=== PATIENT | female | born 1965 | race Caucasian/White ===

== ENCOUNTER 2017-09-10 22:09 | Emergency (ER) | payer BC, OTHER ==
--- NOTE | 2017-09-10 22:33 | PDOC ---
History of Present Illness - General History Source: Patient Exam Limitations: Intoxication - History of Present Illness Initial Comments: 09/11/17 00:22 The patient is a 52 year old female with no significant PMH who presents to the emergency department via EMS after fall today secondary to alcohol intox. The family is at bedside and state they had some drinks while celebrating the patient's birthday yesterday and also had drinks while watching a football game today. The patient has a laceration on the occipital region of her head secondary to her fall today. The patient denies daily alcohol use. The patient denies chest pain, shortness of breath, headache and dizziness. Denies fever, chills, nausea, vomit, diarrhea and constipation. Denies dysuria, frequency, urgency and hematuria. Allergies: NKA Past surgical history: None reported. Social history: Alcohol use. No reported cigarette or drug use. PCP: Dr. Joaquin [facility] Aide: Dr. Whalen <Nataliia Napoles - Last Filed: 09/11/17 00:28> <Jayleen Goyal - Last Filed: 09/11/17 01:14> - General Chief Complaint: Laceration Stated Complaint: Fall Time Seen by Provider: 09/10/17 22:33 Past History <Nataliia Napoles - Last Filed: 09/11/17 00:28> - Suicide/Smoking/Psychosocial Hx Smoking History: Unknown if ever smoked Information on smoking cessation initiated: No Hx Alcohol Use: No Drug/Substance Use Hx: No <Jayleen Goyal - Last Filed: 09/11/17 01:14> - Past Medical History Allergies/Adverse Reactions: Allergies Allergy/AdvReac Type Severity Reaction Status Date / Time No Known Allergies Allergy Verified 09/10/17 22:26 Home Medications: Ambulatory Orders Amlodipine Besylate 10 mg PO DAILY 09/10/17 Cephalexin [Keflex] 250 mg PO QID #12 capsule 09/11/17 Review of Systems - Review of Systems Able to Perform ROS?: Yes Comments:: 09/11/17 00:15 GENERAL/CONSTITUTIONAL: (+) Fall secondary to alcohol intox. No fever or chills. No weakness. HEAD, EYES, EARS, NOSE AND THROAT: No change in vision. No ear pain or discharge. No sore throat. CARDIOVASCULAR: No chest pain or shortness of breath. RESPIRATORY: No cough, wheezing, or hemoptysis. GASTROINTESTINAL: No nausea, vomiting, diarrhea or constipation. GENITOURINARY: No dysuria, frequency, or change in urination. MUSCULOSKELETAL: No joint or muscle swelling or pain. No neck or back pain. SKIN: No rash NEUROLOGIC: No headache, vertigo, loss of consciousness, or change in strength/ sensation. ENDOCRINE: No increased thirst. No abnormal weight change. HEMATOLOGIC/LYMPHATIC: No anemia, easy bleeding, or history of blood clots. ALLERGIC/IMMUNOLOGIC: No hives or skin allergy. ADULT EXAM <Nataliia Napoles - Last Filed: 09/11/17 00:28> *Physical Exam - Vital Signs Last Vital Signs Temp Pulse Resp BP Pulse Ox 98.7 F 86 14 142/90 99 09/10/17 22:26 09/10/17 22:26 09/10/17 22:26 09/10/17 22:26 09/10/17 22:26 - Physical Exam Comments: 09/11/17 00:15 GENERAL: Awake, alert, and fully oriented, in no acute distress HEAD: (+) 1 cm and 1/2 cm adjacent lacerations on the occipital region. EYES: PERRLA, EOMI, sclera anicteric, conjunctiva clear ENT: Auricles normal inspection, hearing grossly normal, nares patent, oropharynx clear without exudates. Moist mucosa NECK: Normal ROM, supple, no lymphadenopathy, JVD, or masses LUNGS: Breath sounds equal, clear to auscultation bilaterally. No wheezes, and no crackles HEART: Regular rate and rhythm, normal S1 and S2, no murmurs, rubs or gallops ABDOMEN: Soft, nontender, normoactive bowel sounds. No guarding, no rebound. No masses EXTREMITIES: Normal range of motion, no edema. No clubbing or cyanosis. No cords, erythema, or tenderness NEUROLOGICAL: Cranial nerves II through XII grossly intact. Normal speech, normal gait SKIN: Warm, Dry, normal turgor, no rashes or lesions noted. <Nataliia Napoles - Last Filed: 09/11/17 00:28> - Vital Signs Last Vital Signs Temp Pulse Resp BP Pulse Ox 98.7 F 86 14 142/90 99 09/10/17 22:26 09/10/17 22:26 09/10/17 22:26 09/10/17 22:26 09/10/17 22:26 <Jayleen Goyal - Last Filed: 09/11/17 01:14> ED Treatment Course - LABORATORY CBC & Chemistry Diagram: 09/10/17 22:59 09/10/17 22:59 - ADDITIONAL ORDERS Additional order review: Laboratory Results 09/10/17 09/10/17 22:59 22:59 Sodium 142 Potassium 3.9 Chloride 104 Carbon Dioxide 26 Anion Gap 12 BUN 16 Creatinine 0.6 Creat Clearance w eGFR > 60 Random Glucose 94 Calcium 8.5 Total Bilirubin 0.2 AST 21 ALT 22 Alkaline Phosphatase 95 Total Protein 7.9 Albumin 3.9 Alcohol, Quantitative 336.7 H* 09/10/17 22:59 RBC 4.02 MCV 95.2 MCHC 34.2 RDW 13.3 MPV 7.6 Neutrophils % 50.7 Lymphocytes % 36.3 Monocytes % 8.2 Eosinophils % 3.3 Basophils % 1.5 <Nataliia Napoles - Last Filed: 09/11/17 00:28> - LABORATORY CBC & Chemistry Diagram: 09/10/17 22:59 09/10/17 22:59 <Jayleen Goyal - Last Filed: 09/11/17 01:14> Medical Decision Making - Medical Decision Making 09/11/17 00:10 Pt comes with alcohol intox. Brought into the ER by EMS. Family at bedside. <Jayleen Goyal - Last Filed: 09/11/17 01:14> *DC/Admit/Observation/Transfer - Attestations Scribe Attestion: 09/11/17 00:16 Documentation prepared by Nataliia Napoles, acting as medical research tech for Jayleen Goyal MD. <Nataliia Napoles - Last Filed: 09/11/17 00:28> - Discharge Dispostion Admit: No <Jayleen Goyal - Last Filed: 09/11/17 01:14> Diagnosis at time of Disposition: Alcohol abuse, Laceration of head - Discharge Dispostion Disposition: HOME Condition at time of disposition: Stable - Prescriptions Prescriptions: Cephalexin [Keflex] 250 mg PO QID #12 capsule - Referrals Referrals: Stephany Joaquin MD [Primary Care Provider] - - Patient Instructions Printed Discharge Instructions: DI for Laceration Repair, DI for Closed Head Injury
[2017-09-10 22:41] VITALS: BP 142/90; PULSE 86; TEMP 98.7; BMI 23.3
[2017-09-10 23:05] LABS: BASO % 1.5 % (0-2.0); EOS % 3.3 % (0-4.5); HEMATOCRIT 38.3 % (32.4-45.2); HEMOGLOBIN 13.1 GM/dL (10.7-15.3); LYMPH % 36.3 % (8-40); MCH 32.6 pg (25.7-33.7); MCHC 34.2 g/dl (32.0-36.0); MEAN CELL VOLUME 95.2 fl (80-96); MEAN PLT VOLUME 7.6 fl (7.5-11.1); MONO % 8.2 % (3.8-10.2); NEUT % 50.7 % (42.8-82.8); PLATELET COUNT 272 K/MM3 (134-434); RBC 4.02 M/mm3 (3.60-5.2); RDW 13.3 % (11.6-15.6); WHITE BLOOD COUNT 7.5 K/mm3 (4.0-10.0)
[2017-09-10 23:32] LABS: ALBUMIN 3.9 g/dl (3.4-5.0); ALK PHOS 95 U/L (45-117); ANION GAP 12 (8-16); BILIRUBIN,TOTAL 0.2 mg/dL (0.2-1.0); BLOOD UREA NITROGEN 16 mg/dL (7-18); CALCIUM 8.5 mg/dL (8.5-10.1); CHLORIDE 104 mmol/L (98-107); CO2 26 mmol/L (21-32); CREATININE 0.6 mg/dL (0.55-1.02); GLUCOSE,RANDOM 94 mg/dL (74-106); POTASSIUM 3.9 mmol/L (3.5-5.1); SGOT/AST 21 U/L (15-37); SGPT/ALT 22 U/L (12-78); SODIUM 142 mmol/L (136-145); TOT PROT 7.9 g/dl (6.4-8.2)
[2017-09-11] MEDS ORDERED: DIPHTH,PERTUSS(ACELL),TET VAC 0.5 ML VIAL IM ONE (00:12)
[2017-09-11] MEDS ORDERED: CEPHALEXIN MONOHYDRATE 500 MG CAPSULE (UD) PO ONE (00:26)
[2017-09-11] MEDS ORDERED: CEPHALEXIN MONOHYDRATE 250 MG CAPSULE (FP) ONE (00:36)
== END 2017-09-11 01:30 | disposition home or self-care (01) ==
LOC: JER 22:09
PROC: 0HQ0XZZ Repair Scalp Skin, External Approach (ICD-10-PCS; principal; 2017-09-10)
PROC: 3E0234Z Introduction of Serum, Toxoid and Vaccine into Muscle, Percutaneous Approach (ICD-10-PCS; 2017-09-10)
DX: F10.120 Alcohol abuse with intoxication, uncomplicated (principal); S01.01XA Laceration without foreign body of scalp, initial encounter; W19.XXXA Unspecified fall, initial encounter; Y93.89 Activity, other specified; Y92.89 Other specified places as the place of occurrence of the external cause; Y99.8 Other external cause status; Y90.8 Blood alcohol level of 240 mg/100 ml or more
CPT/HCPCS: 36415; 70450-TC; 80053; 80307; 85025; 99281-25